=== PATIENT | female | born 1965 | race Caucasian/White ===

== ENCOUNTER → 2016-02-23 | Outpatient (CLI) | payer OTHER ==
[2016-02-23 20:10] LABS: BLOOD UREA NITROGEN 9 MG/DL (7-18); CREATININE FOR GFR 0.72 MG/DL (0.55-1.02); GLOMERULAR FILTRATION RATE > 60.0 (>51)
== END ==
LOC: M WUC 17:13
PROVIDERS: ATTEND Podiatrist
DX: Z51.81 Encounter for therapeutic drug level monitoring (principal); Z79.899 Other long term (current) drug therapy

== ENCOUNTER → 2016-03-08 | Outpatient (CLI) | payer OTHER ==
--- NOTE | 2016-03-09 08:35 | REP ---
MRI study of the right ankle without and with IV contrast: History: Right ankle pain. Question tumor. Attempted aspiration medially but unsuccessful. Comparison radiographs are from December 26, 2015. Technique: Axial, coronal and sagittal imaging planes are utilized. T1, proton density and T2-weighted scans were obtained in the usual fashion with and without fat saturation. MRI findings: There is a large area of low T1, high T2 signal intensity marrow edema occupying most of the anterior calcaneus. Subcortical cyst formation is seen on either side of the subtalar joint posterior facet. There is some minimal marrow edema in the plantar aspect of the talus. There is pes planus. Achilles and plantar calcaneal spurring is noted. There is some thickening and increased signal intensity in the proximal plantar fascia consistent with plantar fasciitis. The Achilles tendon has a normal course, contour and signal intensity. There is a 1.1 cm cystic area deep to the extensor digitorum longus tendon. No other cystic lesion is seen. There is no significant ankle joint or subtalar effusion. No evidence of tarsal coalition is seen. There is some mild valgus deformity at the talonavicular articulation in association with the pes planus. There is swelling and increased signal intensity in a heterogeneous pattern in the tibialis posterior tendon consistent with tendinosis. There appears to be a linear split tear in the distal tendon at its insertion. The flexor hallicis longus and flexor digitorum tendon appear intact. Peroneus longus and brevis tendons have an intact appearance. No ligamentous disruption is seen at the ankle. Ankle mortise is intact. There is no evidence of osteochondral defect lesion involving the tibial plafond or talar dome. Impression: Pes planus with valgus deformity at the talonavicular articulation. Subtalar joint arthropathy and a large area of marrow edema in the anterolateral calcaneus. Plantar fasciitis changes with heel spurring. Small ganglion cyst laterally at the level of the ankle joint deep to the extensor digitorum longus tendon. Tendinosis in the posterior tibial tendon with longitudinal split in the tendon distally. Signed by Levy Ashton MD 03/09/2016 01:17 P
== END ==
LOC: M RAD 16:20
PROVIDERS: ATTEND Podiatrist
DX: M21.41 Flat foot [pes planus] (acquired), right foot (principal); M19.071 Primary osteoarthritis, right ankle and foot; M72.2 Plantar fascial fibromatosis; M77.31 Calcaneal spur, right foot; M67.471 Ganglion, right ankle and foot; M76.821 Posterior tibial tendinitis, right leg
CPT/HCPCS: 73723; A9576

== ENCOUNTER → 2016-05-19 | Outpatient (CLI) | payer OTHER ==
[2016-05-19 09:52] LABS: BASO % 0.8 % (0.0-1.0); EOS # 0.3 K/mm3 (0.0-0.50); EOS % 4.9 % (0.0-3.0); LARGE UNSTAINED CELL # 0.1 K/mm3 (0.0-0.4); LARGE UNSTAINED CELL % 1.8 % (0.0-4.0); LYMPH # 2.4 K/mm3 (1.5-4.5); LYMPH % 38.7 % (24.0-44.0); MEAN CORPUSCULAR HEMOGLOBIN 31.6 pg (27.0-33.0); MEAN CORPUSCULAR HGB CONC 33.8 g/dl (32.0-36.5); MEAN CORPUSCULAR VOLUME 93.5 fl (80.0-96.0); MONO # 0.4 K/mm3 (0.0-0.8); MONO % 5.8 % (0.0-5.0); NEUTROPHILS # 2.9 K/mm3 (1.8-7.7); NEUTROPHILS % 47.9 % (36.0-66.0); PLATELET COUNT, AUTOMATED 271 k/mm3 (150-450)
[2016-05-19 10:24] LABS: ANION GAP 4 MEQ/L (8-16); BLOOD UREA NITROGEN 12 MG/DL (7-18); CALCIUM LEVEL 8.7 MG/DL (8.5-10.1); CARBON DIOXIDE LEVEL 30 MEQ/L (21-32); CHLORIDE LEVEL 106 MEQ/L (98-107); CREATININE FOR GFR 0.74 MG/DL (0.55-1.02); GLOMERULAR FILTRATION RATE > 60.0 (>51); GLUCOSE, FASTING 114 MG/DL (70-105); SODIUM LEVEL 140 MEQ/L (136-145)
--- NOTE | 2016-05-19 22:16 | ECGEPIP ---
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 No PVCs compared with 03/20/2013. Electronically Signed On 05-19-2016 22:16:21 EDT by Roderick Mc
== END ==
LOC: M LAB 09:14
PROVIDERS: ATTEND Podiatrist
DX: Z01.818 Encounter for other preprocedural examination (principal); M76.821 Posterior tibial tendinitis, right leg; M21.41 Flat foot [pes planus] (acquired), right foot; M72.2 Plantar fascial fibromatosis

== ENCOUNTER → 2016-05-25 | Outpatient (CLI) | payer OTHER ==
[2016-05-25 10:30] LABS: BLOOD UREA NITROGEN 10 MG/DL (7-18); CREATININE FOR GFR 0.74 MG/DL (0.55-1.02); GLUCOSE, FASTING 120 MG/DL (70-105)
[2016-05-25 10:31] LABS: ALBUMIN 3.9 GM/DL (3.2-5.2); ALBUMIN/GLOBULIN RATIO 1.15 (1.00-1.93); ALKALINE PHOSPHATASE 127 U/L (45-117); ALT/SGPT 110 U/L (12-78); ANION GAP 9 MEQ/L (8-16); AST/SGOT 75 U/L (15-37); BILIRUBIN,TOTAL 0.4 MG/DL (0.2-1.0); CALCIUM LEVEL 8.6 MG/DL (8.5-10.1); CARBON DIOXIDE LEVEL 27 MEQ/L (21-32); CHLORIDE LEVEL 106 MEQ/L (98-107); CHOLESTEROL LEVEL 215 MG/DL (<200); GLOMERULAR FILTRATION RATE > 60.0 (>51); POTASSIUM SERUM 4.1 MEQ/L (3.5-5.1); SODIUM LEVEL 142 MEQ/L (136-145); TOTAL PROTEIN 7.3 GM/DL (6.4-8.2); TRIGLYCERIDES LEVEL 180 MG/DL (<150)
== END ==
LOC: M WUC 08:12
PROVIDERS: ATTEND Nurse Practitioner Family
DX: I10 Essential (primary) hypertension (principal); R74.8 Abnormal levels of other serum enzymes

== ENCOUNTER → 2016-05-26 | Outpatient (CLI) | payer OTHER | LOC: M WUC 15:55 | PROVIDERS: ATTEND Nurse Practitioner Family | DX: R73.9 Hyperglycemia, unspecified (principal) ==

== ENCOUNTER → 2016-06-04 | Day surgery (SDC) | payer OTHER ==
[~2016-06-04] VITALS: Ht 170.2 cm; Wt 108.9 kg
[~2016-06-04] MED LIST: ALBU17IN INH; BACITRACIN PWD 50,000 UNITS VIAL As Ordered ONE; BUPIVACAINE HCL 0.5% 30 ML VIAL As Ordered ONE; ENOXAPARIN 40 MG/0.4 ML SYRINGE (J1650) SC ONE; GLYCOPYRROLATE INJ 0.2 MG/ML 2 ML VIAL As Ordered ONE; HYDROmorphone HCL 1 MG/ML SYRINGE (J1170) IV PRN; HYDROmorphone HCL 2 MG/ML 1ML VIAL (J1170) As Ordered ONE; KETOROLAC 60 MG/2 ML VIAL (J1885) As Ordered ONE; LIDOCAINE 2% INJ 100 MG/5 ML SYRINGE As Ordered ONE; LIDOCAINE 2% MDV 20 ML VIAL As Ordered ONE; LR 1,000 ML IV SCH; METOCLOPRAMIDE INJ 10MG/2ML VIAL (J2765) As Ordered ONE; MIDAZOLAM INJ 2 MG/2 ML VIAL (J2250) As Ordered ONE; NEOSPORIN GU IRRIG 20 ML VIAL As Ordered ONE; NEOSTIGMINE 1MG/ML 5 ML SYRINGE (J2710) As Ordered ONE; NORCO, ANEXSIA 5/325MG TABLET (HYDROcodone/ACETAMINOPHEN) As Ordered ONE; NORCO, ANEXSIA 5/325MG TABLET (HYDROcodone/ACETAMINOPHEN) PO ONE; ONDANSETRON 4MG/2ML VIAL (J2405) As Ordered ONE; ONDANSETRON 4MG/2ML VIAL (J2405) IV PRN; PERCOCET 5MG/325MG TAB PO PRN; PROPOFOL 200 MG/20 ML VIAL As Ordered ONE; ROCURONIUM BROMIDE 50 MG/5 ML VIAL As Ordered ONE; SEVOFLURANE INHAL SOLN 250 ML BTL As Ordered ONE; VANCOMYCIN HCL 1,000 MG, VIAL MATE ADAPTER 1 EACH in D5W 250 ML IV ONE; dexameTHASONE 4 MG/ML 1ML VIAL (J1100) As Ordered ONE; fentaNYL 100 MCG/2 ML INJECTION (J3010) As Ordered ONE; fentaNYL 100 MCG/2 ML INJECTION (J3010) IV PRN
--- NOTE | 2016-06-04 17:24 | REP ---
RIGHT FOOT, THREE VIEWS: HISTORY: Postoperative osteotomy. A plaster cast is present obscuring detail. The patient is status-post calcaneal osteotomy. Two metal plates and screws are present. There is anatomic alignment through plaster. IMPRESSION: The patient is status-post calcaneal osteotomy. Signed by Gerald Meza MD 06/07/2016 08:00 A
[2016-06-04 20:36] VITALS: BP 128/58
--- NOTE | 2016-06-06 21:24 | RO ---
DATE OF PROCEDURE: 06/04/2016 PREPROCEDURE DIAGNOSES: Posterior tibial tendon dysfunction, right foot. Hallux limitus deformity, right foot. POSTPROCEDURE DIAGNOSES: Posterior tibial tendon dysfunction, right foot. Hallux limitus deformity, right foot. OPERATIVE PROCEDURE: 1. Repair of linear tear posterior tibial tendon, right foot. 2. Flexor digitorum longus tendon transfer to the navicular. 3. Medial calcaneal slide osteotomy with plate and screw fixation. 4. Cheilectomy first metatarsophalangeal joint, right foot. SURGEON: Dr. Glen Bledsoe DPM [employer] MANAGER: None. ANESTHESIA: General. IRRIGATION: Dilute bacitracin, neomycin and polymyxin B solution. IMPLANTS UTILIZED: Arthrex Bio-Tenodesis 5.5 x 15 mm biocomposite, right medial calcaneal displacement plate 8 mm with non-locking screws 3.5 x 35 times two and a 3.5 x 30 mm times two, right foot. DESCRIPTION OF PROCEDURE: On 06/04/2016, this 50-year-old white female was taken from her hospital room to the operating room and placed on the operating table in supine position. Following the induction of IV sedation and local and regional anesthesia, the right lower extremity was prepped and draped in the usual aseptic manner. Right lower extremity was elevated and the patient was placed in the supine position and a thigh tourniquet was rapidly inflated and the following procedure was performed: CHEILECTOMY FIRST METATARSOPHALANGEAL JOINT, RIGHT FOOT: Attention was directed to the patient's right foot where there was noted be a hallux limitus deformity. At this time, a 6 cm incision was placed over the first metatarsophalangeal joint. The incision was deepened through the subcutaneous tissues and all coursing venous tributaries were identified, underscored, clamped, cut, ligated and electrocoagulated as necessary. Linear capsulotomy was performed in the same plane as the original skin incision and the capsule and periosteal structures were then dissected free in one continuous layer dorsally, medially and laterally, thus creating a capsule and periosteal type envelope. This lead into view spurring over the first metatarsophalangeal joint, as well as two loose bodies, as well as a central defect of articular cartilage. There was small area measuring approximately 4 mm x 5 mm with loss of articular surface and this was debrided away. Spurring on the dorsal surface of the fist metatarsal was then osteotomized encompassing the dorsal 25%. The proximal phalanx had 20% of spurring and cartilage loss. This was then osteotomized from distal to proximal and extirpated from the wound. Medial eminence was osteotomized from distal to proximal through and through exiting medial to the sesamoidal groove. Utilizing a metatarsal elevator, the plantar sesamoids were released. The wound was flushed with copious amounts of dilute bacitracin, neomycin and polymyxin B solution. Attention was directed towards closure where the capsular structures were coapted and maintained using #2-0 Monocryl in a simple interrupted type fashion. The subcutaneous tissues were coapted and maintained using #4-0 Monocryl in simple interrupted type fashion. The skin incision was coapted and maintained using #4-0 Prolene in simple interrupted and horizontal mattress type fashion. Attention was then directed to the medial surface of the foot where the following procedure was performed: REPAIR OF LINEAR TEAR POSTERIOR TIBIAL TENDON, RIGHT FOOT: Attention was directed to the patient's right foot where there was noted to be swelling over the medial tendons. At this time, an S-shaped incision was placed extending approximately 2 cm superior to the medial malleolus and ending approximately 1 cm distal to the navicular. The incision was deepened through the subcutaneous tissues. All coursing venous tributaries were clamped, cut, ligated and electrocoagulated as necessary. The posterior tibial tendon sheath was then opened. There was noted to be a hypertrophy of synovium. This was then debrided away with sharp dissection and electrocoagulation. The posterior tibial tendon was flipped and there was noted to be a 6 cm tear of the posterior tibial tendon. This was sharply debrided and all diseased tendon was removed. Utilizing #4-0 FiberWire, the defect was repaired with a running buried knot FiberWire stitch. The wound was then flushed with copious amounts of dilute Bacitracin, neomycin and Polymyxin B solution. The following procedure was performed: FLEXOR DIGITORUM LONGUS TENDON TRANSFER TO THE NAVICULAR: The flexor digitorum longus tendon sheath was then opened and dissection was carried down past the abduction hallices toward the master knot of Alex. The large venous complex in this area was retracted in a plantar direction. All bleeders in that area that were identified were clamped and ligated. Gelfoam was also placed into the wound. Plantar flexion was noted when the tendon was pulled of the lesser digits. The flexor digitorum longus tendon was then transected. Utilizing a #2 FiberWire, a whipstitch was then placed in the usual fashion. The tendon was then placed under anatomic and physiologic tension and it was noted that approximately 20 mm of the tendon distally should be placed into the navicular for the correct pressure. Therefore, utilizing a cannulated wire with C-Arm imagery, correct position was noted to the navicular and a 5.5 drill bit was buried 20 mm into the navicular creating a socket for acceptance of the flexor digitorum longus tendon. Utilizing the standard technique with a 5.5 x 15 mm screw, the tendon was placed into the socket and the 5.5 x 15 Bio-Tenodesis screw was inserted. Excellent fixation was noted. The FiberWire was then knotted over the screw and transected. The wound was flushed with copious amounts of dilute Bacitracin, Neomycin, and Polymyxin B solution. The flexor tendon sheath was then repaired with #4-0 Monocryl suture. Subcutaneous tissues were coapted and maintained utilizing #4-0 Monocryl in a simple interrupted type fashion. Skin incision was coapted and maintained using #4-0 Prolene in a simple, interrupted horizontal mattress type fashion. Temporary bandage was then placed on the wound and the thigh tourniquet was deflated after 108 minutes. Greater than 20 minutes was then utilized for proper revascularization of the foot. The thigh tourniquet was then rapidly inflated to 300 mmHg. The patient was placed in the left lateral decubitus position and the following procedure was performed: MEDIAL CALCANEAL SLIDE OSTEOTOMY WITH PLATE AND SCREW FIXATION: Attention was directed to the lateral surface of the foot where posterior to the peroneal tendon an incision was made across the calcaneus. This measured approximately 5 cm. Dissection was then carried down to the lateral wall of the calcaneus. All bleeders, as encountered were electrocoagulated. Using a power saw, an osteotomy was then performed through the calcaneus away from the subtalar joint and exiting distal to the tuberosity of the calcaneus. Utilizing an 8 mm DPS plate, the calcaneus was slid in a medial direction 8 mm and fixated with 3.5 x 35 mm non-locking screws. Non-locking screws were then utilized across the plate, 3.5 x 35 mm times two and a 3.5 x 30 mm times two. Excellent fixation was noted of the osteotomy and good compression was noted at the osteotomy site. The wound was flushed with copious amounts of dilute bacitracin, neomycin, and polymyxin B solution. The periosteum was then repaired with #3-0 Vicryl. Subcutaneous tissue coapted and maintained using #4-0 Monocryl in a simple, interrupted type fashion. Skin incision was coapted and maintained using #4-0 Prolene in a simple interrupted horizontal mattress type fashion. The foot was then dressed with 4x4s, 4x4 splints, Adaptic and a Fan compression dressing. The thigh tourniquet was rapidly deflated and instantaneous capillary filling time was noted in digits 1-5 of the patient's right foot. The patient apparently having tolerated the surgical procedure well was taken from the OR to the recovery room with vital signs stable, patient afebrile, for further monitoring by the anesthesia department. All surgical specimens removed during the operative procedure were sent to pathology for gross and microscopic examination. Postoperative instructions will be given upon discharge.
== END | disposition home or self-care (01) ==
LOC: M SDC 08:47
PROVIDERS: ATTEND Podiatrist
DX: M76.821 Posterior tibial tendinitis, right leg (principal); M67.471 Ganglion, right ankle and foot; M72.2 Plantar fascial fibromatosis; M20.21 Hallux rigidus, right foot; G47.30 Sleep apnea, unspecified; Z88.0 Allergy status to penicillin; Z88.2 Allergy status to sulfonamides
CPT/HCPCS: 27691; 28200; 28289; 28300; 73630; 88300; C1776; J1100; J1170; J1650; J1885; J2250; J2405; J2710; J2765; J3010; J3370

== ENCOUNTER → 2016-09-22 | Outpatient (CLI) | payer OTHER ==
[~2016-09-22] MED LIST changes: -BACITRACIN PWD 50,000 UNITS VIAL As Ordered ONE; -BUPIVACAINE HCL 0.5% 30 ML VIAL As Ordered ONE; -ENOXAPARIN 40 MG/0.4 ML SYRINGE (J1650) SC ONE; -GLYCOPYRROLATE INJ 0.2 MG/ML 2 ML VIAL As Ordered ONE; -HYDROmorphone HCL 1 MG/ML SYRINGE (J1170) IV PRN; -HYDROmorphone HCL 2 MG/ML 1ML VIAL (J1170) As Ordered ONE; -KETOROLAC 60 MG/2 ML VIAL (J1885) As Ordered ONE; -LIDOCAINE 2% INJ 100 MG/5 ML SYRINGE As Ordered ONE; -LIDOCAINE 2% MDV 20 ML VIAL As Ordered ONE; -LR 1,000 ML IV SCH; -METOCLOPRAMIDE INJ 10MG/2ML VIAL (J2765) As Ordered ONE; -MIDAZOLAM INJ 2 MG/2 ML VIAL (J2250) As Ordered ONE; -NEOSPORIN GU IRRIG 20 ML VIAL As Ordered ONE; -NEOSTIGMINE 1MG/ML 5 ML SYRINGE (J2710) As Ordered ONE; -NORCO, ANEXSIA 5/325MG TABLET (HYDROcodone/ACETAMINOPHEN) As Ordered ONE; -NORCO, ANEXSIA 5/325MG TABLET (HYDROcodone/ACETAMINOPHEN) PO ONE; -ONDANSETRON 4MG/2ML VIAL (J2405) As Ordered ONE; -ONDANSETRON 4MG/2ML VIAL (J2405) IV PRN; -PERCOCET 5MG/325MG TAB PO PRN; -PROPOFOL 200 MG/20 ML VIAL As Ordered ONE; -ROCURONIUM BROMIDE 50 MG/5 ML VIAL As Ordered ONE; -SEVOFLURANE INHAL SOLN 250 ML BTL As Ordered ONE; -VANCOMYCIN HCL 1,000 MG, VIAL MATE ADAPTER 1 EACH in D5W 250 ML IV ONE; -dexameTHASONE 4 MG/ML 1ML VIAL (J1100) As Ordered ONE; -fentaNYL 100 MCG/2 ML INJECTION (J3010) As Ordered ONE; -fentaNYL 100 MCG/2 ML INJECTION (J3010) IV PRN
[2016-09-22 09:24] LABS: MEAN CORPUSCULAR HEMOGLOBIN 31.9 pg (27.0-33.0); MEAN CORPUSCULAR HGB CONC 34.4 g/dl (32.0-36.5); MEAN CORPUSCULAR VOLUME 92.7 fl (80.0-96.0); RED CELL DISTRIBUTION WIDTH 12.1 % (11.5-14.5); WHITE BLOOD COUNT 5.6 K/mm3 (4.0-10.0)
[2016-09-22 10:09] LABS: ALBUMIN 4.1 GM/DL (3.2-5.2); ALBUMIN/GLOBULIN RATIO 1.14 (1.00-1.93); ALKALINE PHOSPHATASE 142 U/L (45-117); ALT/SGPT 127 U/L (12-78); ANION GAP 11 MEQ/L (8-16); AST/SGOT 120 U/L (15-37); BILIRUBIN,TOTAL 0.6 MG/DL (0.2-1.0); BLOOD UREA NITROGEN 8 MG/DL (7-18); CALCIUM LEVEL 8.5 MG/DL (8.5-10.1); CARBON DIOXIDE LEVEL 25 MEQ/L (21-32); CHLORIDE LEVEL 107 MEQ/L (98-107); CHOLESTEROL LEVEL 241 MG/DL (<200); CREATININE FOR GFR 0.75 MG/DL (0.55-1.02); GLOMERULAR FILTRATION RATE > 60.0 (>51); GLUCOSE, FASTING 117 MG/DL (70-105); SODIUM LEVEL 143 MEQ/L (136-145); TOTAL PROTEIN 7.7 GM/DL (6.4-8.2); TRIGLYCERIDES LEVEL 187 MG/DL (<150)
== END ==
LOC: M WUC 08:03
PROVIDERS: ATTEND Nurse Practitioner Family
DX: E78.5 Hyperlipidemia, unspecified (principal); E11.9 Type 2 diabetes mellitus without complications; R94.5 Abnormal results of liver function studies; Z79.899 Other long term (current) drug therapy

== ENCOUNTER → 2017-03-18 | Outpatient (CLI) | payer OTHER ==
[2017-03-18 20:21] LABS: CREATININE FOR GFR 0.73 MG/DL (0.55-1.30); GLOMERULAR FILTRATION RATE > 60.0 (>51)
[2017-03-18 20:21] LABS: BLOOD UREA NITROGEN 9 MG/DL (7-18)
== END ==
LOC: M WUC 16:05
DX: E11.9 Type 2 diabetes mellitus without complications (principal)
CPT/HCPCS: 82565

== ENCOUNTER → 2017-06-09 | Outpatient (REF) | payer OTHER | LOC: M LAB REF 11:53 | DX: N39.0 Urinary tract infection, site not specified (principal) ==

== ENCOUNTER 2017-09-12 08:03 | Emergency (ER) | payer OTHER ==
[2017-09-12] MEDS: KETOROLAC 30 MG/ML VIAL (J1885) IV (09:28)
[2017-09-12] MEDS: ONDANSETRON 4MG/2ML VIAL (J2405) IV (09:29)
[2017-09-12 09:34] LABS: CALCIUM OXALATE CRYSTALS RFX MODERATE; KETONE, URINE AUTO RFX TRACE mg/dL (NEGATIVE); MUCUS, URINE RFX SMALL (NEGATIVE); NITRITE, URINE AUTO RFX NEGATIVE (NEGATIVE); RBC, URINE AUTO RFX TNTC /HPF (0-3); SPECIFIC GRAVITY UR AUTO RFX 1.021 (1.002-1.035); SQUAM EPITHELIAL CELL UR AURFX 3 /HPF (0-6); YEAST LIKE CELL URINE AUTO RFX SMALL
[2017-09-12 09:35] LABS: LEUKOCYTE ESTERASE UR AUTO RFX 1+ (NEGATIVE); WBC, URINE AUTO RFX 30 /HPF (0-3)
== END 2017-09-12 12:15 | disposition home or self-care (01) ==
LOC: M ED 08:03
DX: N13.1 Hydronephrosis with ureteral stricture, not elsewhere classified (principal); K86.2 Cyst of pancreas; N28.1 Cyst of kidney, acquired; R11.10 Vomiting, unspecified; E11.9 Type 2 diabetes mellitus without complications; E78.5 Hyperlipidemia, unspecified; J30.89 Other allergic rhinitis; J30.81 Allergic rhinitis due to animal (cat) (dog) hair and dander; J30.1 Allergic rhinitis due to pollen; Z88.0 Allergy status to penicillin; Z88.2 Allergy status to sulfonamides; Z79.899 Other long term (current) drug therapy; Z79.84 Long term (current) use of oral hypoglycemic drugs
CPT/HCPCS: J2405

== ENCOUNTER → 2017-09-15 | Outpatient (REF) | payer OTHER ==
[2017-09-15 13:07] LABS: AMORPHOUS SEDIMENT LARGE (NEGATIVE); APPEARANCE, URINE TURBID (CLEAR); BACTERIA, URINE AUTO NEGATIVE (NEGATIVE); BILIRUBIN, URINE AUTO NEGATIVE (NEGATIVE); BLOOD, URINE BLOOD 3+ (NEGATIVE); COLOR, URINE RED (YELLOW); GLUCOSE, URINE (UA) AUTO 1+ mg/dL (NEGATIVE); KETONE, URINE AUTO NEGATIVE (NEGATIVE); LEUKOCYTE ESTERASE, URINE AUTO TRACE (NEGATIVE); MUCUS, URINE SMALL (NEGATIVE); NITRITE, URINE AUTO NEGATIVE (NEGATIVE); PROTEIN, URINE AUTO 2+ mg/dL (NEGATIVE); RBC, URINE AUTO TNTC /HPF (0-3); SPECIFIC GRAVITY URINE AUTO 1.025 (1.002-1.035); SQUAMOUS EPITHELIAL CELL UR AU 0 /HPF (0-6); WBC, URINE AUTO 4 /HPF (0-3)
== END ==
LOC: M SMT 12:39
DX: N20.0 Calculus of kidney (principal)
CPT/HCPCS: 81001

== ENCOUNTER 2017-10-24 21:41 | Emergency (ER) | payer OTHER ==
[2017-10-24] MEDS: MORPHINE 4 MG/ML 1ML VIAL/SYRINGE (J2270) IV ×2 (22:30→23:31)
[2017-10-24] MEDS: KETOROLAC 30 MG/ML VIAL (J1885) IV (22:30)
[2017-10-24] MEDS: ONDANSETRON 4MG/2ML VIAL (J2405) IV (22:30)
[2017-10-24 22:43] LABS: BASO # 0.1 10^3/uL (0.0-0.2); BASO % 0.7 % (0.0-1.0); EOS # 0.3 10^3/uL (0.0-0.50); EOS % 3.9 % (0.0-3.0); HEMATOCRIT 39.9 % (36.0-47.0); HEMOGLOBIN 13.6 g/dl (12.0-15.5); IMMATURE GRANULOCYTE % 0.2 % (0-3.0); LYMPH # 3.9 10^3/uL (1.5-4.5); LYMPH % 45.6 % (24.0-44.0); MEAN CORPUSCULAR HEMOGLOBIN 31.7 pg (27.0-33.0); MEAN CORPUSCULAR HGB CONC 34.1 g/dl (32.0-36.5); MONO # 0.7 10^3/uL (0.0-0.8); MONO % 7.9 % (0.0-5.0); NEUTROPHILS # 3.6 10^3/uL (1.8-7.7); NEUTROPHILS % 41.7 % (36.0-66.0); PLATELET COUNT, AUTOMATED 247 10^3/uL (150-450); RED BLOOD COUNT 4.29 10^6/uL (4.00-5.40); RED CELL DISTRIBUTION WIDTH 12.3 % (11.5-14.5); WHITE BLOOD COUNT 8.6 10^3/uL (4.0-10.0)
[2017-10-25 00:48] LABS: ANION GAP 12 MEQ/L (8-16); BLOOD UREA NITROGEN 7 MG/DL (7-18); CALCIUM LEVEL 9.8 MG/DL (8.5-10.1); CARBON DIOXIDE LEVEL 24 MEQ/L (21-32); CHLORIDE LEVEL 105 MEQ/L (98-107); CK-MB VALUE MASS < 1.0 NG/ML (<3.6); CPK CREATINE PHOSPHOKINASE 244 U/L (26-192); CREATININE FOR GFR 0.89 MG/DL (0.55-1.30); GLOMERULAR FILTRATION RATE > 60.0 (>51); GLUCOSE, FASTING 210 MG/DL (70-100); MB/CK RELATIVE INDEX 0.41 (< OR =4); POTASSIUM SERUM 4.1 MEQ/L (3.5-5.1); SODIUM LEVEL 141 MEQ/L (136-145); TROPONIN I < 0.02 NG/ML (< 0.10)
[2017-10-25 01:15] LABS: CALCIUM OXALATE CRYSTALS RFX SMALL; KETONE, URINE AUTO RFX NEGATIVE (NEGATIVE); LEUKOCYTE ESTERASE UR AUTO RFX TRACE (NEGATIVE); MUCUS, URINE RFX SMALL (NEGATIVE); NITRITE, URINE AUTO RFX NEGATIVE (NEGATIVE); RBC, URINE AUTO RFX TNTC /HPF (0-3); SPECIFIC GRAVITY UR AUTO RFX 1.009 (1.002-1.035); SQUAM EPITHELIAL CELL UR AURFX 3 /HPF (0-6); WBC, URINE AUTO RFX 15 /HPF (0-3)
[2017-10-25] MEDS: TAMSULOSIN 0.4 MG CAP PO (02:03)
[2017-10-25] MEDS: OXYCODONE/APAP 5MG/325MG(BULK FOR ED) 1 TABLET PO (02:04)
== END 2017-10-25 02:11 | disposition home or self-care (01) ==
LOC: M ED 10-25 02:11
DX: N20.1 Calculus of ureter (principal); Z87.442 Personal history of urinary calculi; Z79.899 Other long term (current) drug therapy; Z79.84 Long term (current) use of oral hypoglycemic drugs
CPT/HCPCS: J2270

== ENCOUNTER → 2017-10-24 | Outpatient (CLI) | payer OTHER | LOC: M RAD 17:03 | DX: N20.0 Calculus of kidney (principal) ==

== ENCOUNTER 2017-10-28 21:31 | Emergency (ER) | payer OTHER ==
[2017-10-28 22:02] LABS: KETONE, URINE AUTO RFX NEGATIVE (NEGATIVE); LEUKOCYTE ESTERASE UR AUTO RFX NEGATIVE (NEGATIVE); MUCUS, URINE RFX SMALL (NEGATIVE); NITRITE, URINE AUTO RFX NEGATIVE (NEGATIVE); RBC, URINE AUTO RFX TNTC /HPF (0-3); SPECIFIC GRAVITY UR AUTO RFX 1.019 (1.002-1.035); SQUAM EPITHELIAL CELL UR AURFX 0 /HPF (0-6); WBC, URINE AUTO RFX 5 /HPF (0-3)
[2017-10-28] MEDS: NS 1,000 ML IV (22:30)
[2017-10-28] MEDS: MORPHINE 4 MG/ML 1ML VIAL/SYRINGE (J2270) IV (22:45)
[2017-10-28] MEDS ORDERED: TAMSULOSIN 0.4 MG CAP PO (22:45)
[2017-10-28] MEDS: TAMSULOSIN 0.4 MG CAP PO (22:45)
[2017-10-28 23:13] LABS: BASO # 0.1 10^3/uL (0.0-0.2); BASO % 0.6 % (0.0-1.0); EOS # 0.4 10^3/uL (0.0-0.50); EOS % 4.3 % (0.0-3.0); HEMATOCRIT 36.5 % (36.0-47.0); HEMOGLOBIN 12.2 g/dl (12.0-15.5); IMMATURE GRANULOCYTE % 0.2 % (0-3.0); LYMPH # 2.7 10^3/uL (1.5-4.5); LYMPH % 29.6 % (24.0-44.0); MEAN CORPUSCULAR HEMOGLOBIN 31.6 pg (27.0-33.0); MEAN CORPUSCULAR HGB CONC 33.4 g/dl (32.0-36.5); MEAN CORPUSCULAR VOLUME 94.6 fl (80.0-96.0); MONO # 0.8 10^3/uL (0.0-0.8); MONO % 8.7 % (0.0-5.0); NEUTROPHILS # 5.1 10^3/uL (1.8-7.7); NEUTROPHILS % 56.6 % (36.0-66.0); PLATELET COUNT, AUTOMATED 230 10^3/uL (150-450); RED BLOOD COUNT 3.86 10^6/uL (4.00-5.40); RED CELL DISTRIBUTION WIDTH 12.2 % (11.5-14.5)
[2017-10-28 23:45] LABS: ANION GAP 7 MEQ/L (8-16); BLOOD UREA NITROGEN 10 MG/DL (7-18); CALCIUM LEVEL 9.1 MG/DL (8.5-10.1); CARBON DIOXIDE LEVEL 28 MEQ/L (21-32); CHLORIDE LEVEL 105 MEQ/L (98-107); CREATININE FOR GFR 1.01 MG/DL (0.55-1.30); GLOMERULAR FILTRATION RATE > 60.0 (>51); GLUCOSE, FASTING 266 MG/DL (70-100); POTASSIUM SERUM 3.7 MEQ/L (3.5-5.1); SODIUM LEVEL 140 MEQ/L (136-145)
[2017-10-29] MEDS: NS 1,000 ML IV (01:00)
[2017-10-29] MEDS: KETOROLAC 30 MG/ML VIAL (J1885) IV (01:00)
== END 2017-10-29 03:54 | disposition home or self-care (01) ==
LOC: M ED 10-29 03:54
DX: N20.1 Calculus of ureter (principal); Z87.442 Personal history of urinary calculi; R11.0 Nausea; E11.9 Type 2 diabetes mellitus without complications; E78.5 Hyperlipidemia, unspecified; E03.9 Hypothyroidism, unspecified; Z88.0 Allergy status to penicillin; Z88.2 Allergy status to sulfonamides; J30.81 Allergic rhinitis due to animal (cat) (dog) hair and dander; J30.89 Other allergic rhinitis; Z79.899 Other long term (current) drug therapy; Z79.84 Long term (current) use of oral hypoglycemic drugs
CPT/HCPCS: J2270

== ENCOUNTER → 2017-12-13 | Outpatient (CLI) | payer OTHER | LOC: M RAD 17:10 | DX: K42.9 Umbilical hernia without obstruction or gangrene (principal); K57.90 Diverticulosis of intestine, part unspecified, without perforation or abscess without bleeding | CPT/HCPCS: 74176 ==

== ENCOUNTER → 2018-08-11 | Outpatient (CLI) | payer OTHER ==
[~2018-08-11] MED LIST changes: +CRES10TA PO; +FLOM0.4C39 PO; +HYDR-3715 PO; +LEVO25TA5 PO; +MELO15TA28 PO; +METF500T13 PO; +PERC5TAB12 PO; +VENTAER INH; +ZOFR4TAB14 PO
[2018-08-11 15:57] LABS: BASO # 0.1 10^3/uL (0.0-0.2); BASO % 0.7 % (0.0-1.0); EOS # 0.2 10^3/uL (0.0-0.50); EOS % 3.5 % (0.0-3.0); HEMATOCRIT 43.1 % (36.0-47.0); HEMOGLOBIN 14.5 g/dl (12.0-15.5); LYMPH # 3.3 10^3/uL (1.5-4.5); LYMPH % 47.7 % (24.0-44.0); MEAN CORPUSCULAR HEMOGLOBIN 31.9 pg (27.0-33.0); MEAN CORPUSCULAR HGB CONC 33.6 g/dl (32.0-36.5); MEAN CORPUSCULAR VOLUME 94.9 fl (80.0-96.0); MONO # 0.4 10^3/uL (0.0-0.8); NEUTROPHILS # 2.9 10^3/uL (1.8-7.7); PLATELET COUNT, AUTOMATED 165 10^3/uL (150-450); RED BLOOD COUNT 4.54 10^6/uL (4.00-5.40); WHITE BLOOD COUNT 6.9 10^3/uL (4.0-10.0)
[2018-08-11 16:00] LABS: ALBUMIN 4.1 GM/DL (3.2-5.2); ALT/SGPT 92 U/L (12-78); BILIRUBIN,TOTAL 0.7 MG/DL (0.2-1.0); BLOOD UREA NITROGEN 6 MG/DL (7-18); CALCIUM LEVEL 8.5 MG/DL (8.5-10.1); CARBON DIOXIDE LEVEL 28 MEQ/L (21-32); CHLORIDE LEVEL 104 MEQ/L (98-107); CHOLESTEROL LEVEL 219 MG/DL (<200); CHOLESTEROL RISK RATIO 6.083 (<5); CREATININE FOR GFR 0.78 MG/DL (0.55-1.30); FREE T4 1.17 NG/DL (0.76-1.46); GLOMERULAR FILTRATION RATE > 60.0 (>51); GLUCOSE, FASTING 299 MG/DL (70-100); HDL CHOLESTEROL 36 MG/DL (>40); LDL CHOLESTEROL 140 MG/DL (<100); NON-HDL-C 183 MG/DL; POTASSIUM SERUM 4.1 MEQ/L (3.5-5.1); SODIUM LEVEL 139 MEQ/L (136-145); TOTAL PROTEIN 7.7 GM/DL (6.4-8.2); TRIGLYCERIDES LEVEL 217 MG/DL (<150)
== END ==
LOC: M WUC 08:49
PROVIDERS: ATTEND Physician Assistant Medical
DX: R53.83 Other fatigue (principal); I10 Essential (primary) hypertension; E78.2 Mixed hyperlipidemia; E03.9 Hypothyroidism, unspecified; E11.9 Type 2 diabetes mellitus without complications

== ENCOUNTER → 2019-03-26 | Outpatient (CLI) | payer OTHER ==
[2019-03-26 20:37] LABS: ALBUMIN 4.6 GM/DL (3.2-5.2); ALT/SGPT 88 U/L (12-78); BILIRUBIN,TOTAL 0.6 MG/DL (0.2-1.0); BLOOD UREA NITROGEN 9 MG/DL (7-18); CALCIUM LEVEL 9.6 MG/DL (8.5-10.1); CARBON DIOXIDE LEVEL 32 MEQ/L (21-32); CHLORIDE LEVEL 101 MEQ/L (98-107); CREATININE FOR GFR 0.84 MG/DL (0.55-1.30); GLOMERULAR FILTRATION RATE > 60.0 (>51); GLUCOSE, FASTING 157 MG/DL (70-100); POTASSIUM SERUM 4.1 MEQ/L (3.5-5.1); SODIUM LEVEL 139 MEQ/L (136-145); TOTAL PROTEIN 8.3 GM/DL (6.4-8.2)
[2019-03-26 20:38] LABS: HEMATOCRIT 45.6 % (36.0-47.0); HEMOGLOBIN 15.2 g/dl (12.0-15.5); MEAN CORPUSCULAR HEMOGLOBIN 31.2 pg (27.0-33.0); MEAN CORPUSCULAR HGB CONC 33.3 g/dl (32.0-36.5); MEAN CORPUSCULAR VOLUME 93.6 fl (80.0-96.0); PLATELET COUNT, AUTOMATED 226 10^3/uL (150-450); RED BLOOD COUNT 4.87 10^6/uL (4.00-5.40)
[2019-03-26 20:40] LABS: WHITE BLOOD COUNT 11.3 10^3/uL (4.0-10.0)
[2019-03-26 20:58] LABS: ATYPICAL LYMPH 2 % (0-5); EOSINOPHILS 3 % (0-3); LYMPHOCYTES 52 % (16-44); MONOCYTES 4 % (0-5); NEUTROPHILS 39 % (28-66)
[2019-03-26 20:59] LABS: PLATELET ESTIMATE NORMAL (NORMAL)
== END ==
LOC: M WUC 17:56
PROVIDERS: ATTEND Physician Assistant
DX: R51 Headache (principal)

== ENCOUNTER → 2019-09-27 | Outpatient (CLI) | payer OTHER ==
--- NOTE | 2019-10-16 07:04 | REPMRS ---
Patient History The patient states she has not had a clinical breast exam in over a year. Patient is postmenopausal. Family history of colorectal cancer at age 50 or over in paternal uncle, unknown cancer at age 50 or over in maternal uncle, breast cancer under age 50 in maternal cousin, breast cancer at age 50 or over in maternal cousin, breast cancer at age 50 or over in maternal cousin, unknown cancer at age 50 or over in maternal grandfather, breast cancer at age 38 in paternal cousin, endometrial cancer at age 50 or over in paternal aunt, colorectal cancer at age 80 in father. Took hormonal contraceptives for 3 years. Digital Woman Screen Mammo: September 27, 2019 - Exam #: [id number] Bilateral CC and MLO view(s) were taken. Technologist: Santosh Statonologist Prior study comparison: October 04, 2014, digital bilateral screening mammo, performed at [facility]. October 02, 2013, bilateral bilat screen digital mammo, performed at [facility] ([facility]). October 01, 2010, bilateral screening mammogram, performed at [facility] ([facility]). FINDINGS: There are scattered fibroglandular densities. The Volpara volumetric breast density category is:B. There has been no change in the appearance of the mammogram from the prior studies. There is a mild amount of scattered fibroglandular density which is fairly symmetric. There is no interval development of dominant mass, architectural distortion, or grouped microcalcification suggestive of malignancy. 3-D tomosynthesis shows no additional findings. Assessment: BI-RADS/ACR category 1 mammogram. Negative Mammogram. Recommendation Routine screening mammogram of both breasts in 1 year (for women over age 40). This patient's Lifetime Breast Cancer Risk is estimated at 9.9 %. This mammogram was interpreted with the aid of an FDA-approved computer-aided dectection system. Electronically Signed By: Sid Ashton MD 10/16/19 [id number]
== END ==
LOC: M WHC 07:28
PROVIDERS: ATTEND Internal Medicine Cardiovascular Disease
DX: Z12.31 Encounter for screening mammogram for malignant neoplasm of breast (principal); Z78.0 Asymptomatic menopausal state; Z80.0 Family history of malignant neoplasm of digestive organs

== ENCOUNTER → 2020-02-12 | Outpatient (CLI) | payer OTHER ==
[2020-02-12 08:16] LABS: ALBUMIN 3.6 GM/DL (3.2-5.2); BILIRUBIN,DIRECT 0.1 MG/DL (0.0-0.2); BILIRUBIN,TOTAL 0.5 MG/DL (0.2-1.0); TOTAL PROTEIN 7.1 GM/DL (6.4-8.2)
== END ==
LOC: M LAB 07:06
DX: R93.5 Abnormal findings on diagnostic imaging of other abdominal regions, including retroperitoneum (principal); Z80.0 Family history of malignant neoplasm of digestive organs; Z12.11 Encounter for screening for malignant neoplasm of colon

== ENCOUNTER → 2020-03-13 | Outpatient (CLI) | payer OTHER ==
--- NOTE | 2020-03-13 15:05 | REP ---
INDICATION: ELEVATED LFT'S CIRRHOSIS TECHNIQUE: Real time B-mode tapia scale and color ultrasound examination using curved array transducer. FINDINGS: Liver measures 21 cm in craniocaudal length and demonstrates coarsened hyperechoic echotexture without focal hepatic lesion. Spleen measures 11.7 x 12.1 x 5.1 cm (SI: 758) without focal splenic lesion identified. The pancreas is incompletely evaluated but visualized portions appear normal. Patient is noted to be status post cholecystectomy. No biliary ductal dilatation is appreciated and the common bile duct measures 4.9 mm diameter. The bilateral kidneys are normal in reniform shape and demonstrate increased central sinus fat without hydronephrosis. Right kidney measures 12.2 x 5.1 x 4.5 cm with a 2.7 x 1.5 x 1.8 cm partially rim calcified presumed complex cyst and 5 x 4 x 6 mm midpole cyst. Left kidney measures 12.8 x 5.0 x 5.0 cm and includes 8 x 9 x 9 mm upper pole cyst. Abdominal aorta is normal caliber and measures 1.8 cm maximal diameter. No obvious ascites. IMPRESSION: Findings consistent with hepatocellular disease/cirrhosis. Splenomegaly without focal lesion. Chronic medical renal disease along with simple and presumed complex cysts. Consider pre and postcontrast CT of the abdomen to confirm benignity. <Electronically signed by Terry Dawson > 03/13/20 [id number]
== END ==
LOC: M RAD 06:53
PROVIDERS: ATTEND Specialist
DX: R93.5 Abnormal findings on diagnostic imaging of other abdominal regions, including retroperitoneum (principal); N18.9 Chronic kidney disease, unspecified; Z12.11 Encounter for screening for malignant neoplasm of colon; Z80.0 Family history of malignant neoplasm of digestive organs; Z90.49 Acquired absence of other specified parts of digestive tract

== ENCOUNTER → 2020-03-18 | Outpatient (CLI) | payer OTHER ==
[2020-03-18 09:20] LABS: % LABILE ALKALINE PHOSPHATASE 53.96 %
== END ==
LOC: M LAB 07:04
PROVIDERS: ATTEND Nurse Practitioner Family
DX: R74.8 Abnormal levels of other serum enzymes (principal)

== ENCOUNTER → 2020-05-14 | Outpatient (CLI) | payer OTHER | LOC: M LABSMTC 10:59 | PROVIDERS: ATTEND Nurse Practitioner Family | DX: Z20.822 Contact with and (suspected) exposure to COVID-19 (principal) ==

== ENCOUNTER → 2020-05-31 | Outpatient (CLI) | payer OTHER ==
[2020-05-31 09:33] LABS: BASO # 0.1 10^3/uL (0.0-0.2); BASO % 0.8 % (0.0-1.0); EOS # 0.2 10^3/uL (0.0-0.5); EOS % 3.6 % (0.0-3.0); HEMATOCRIT 42.4 % (36.0-47.0); HEMOGLOBIN 13.9 g/dl (12.0-15.5); LYMPH % 44.8 % (24.0-44.0); MEAN CORPUSCULAR HEMOGLOBIN 30.6 pg (27.0-33.0); MEAN CORPUSCULAR HGB CONC 32.8 g/dl (32.0-36.5); MEAN CORPUSCULAR VOLUME 93.4 fl (80.0-96.0); MONO # 0.5 10^3/uL (0.0-0.8); MONO % 7.8 % (2.0-8.0); NEUTROPHILS # 2.9 10^3/uL (1.5-8.5); NEUTROPHILS % 42.8 % (36.0-66.0); PLATELET COUNT, AUTOMATED 167 10^3/uL (150-450); RED BLOOD COUNT 4.54 10^6/uL (4.00-5.40); WHITE BLOOD COUNT 6.7 10^3/uL (4.0-10.0)
[2020-05-31 10:07] LABS: HEMOGLOBIN A1c 6.7 %
[2020-05-31 10:08] LABS: ALBUMIN 3.8 GM/DL (3.2-5.2); ALT/SGPT 56 U/L (12-78); BILIRUBIN,TOTAL 0.5 MG/DL (0.2-1.0); BLOOD UREA NITROGEN 9 MG/DL (7-18); CALCIUM LEVEL 8.6 MG/DL (8.5-10.1); CARBON DIOXIDE LEVEL 31 MEQ/L (21-32); CHLORIDE LEVEL 106 MEQ/L (98-107); CHOLESTEROL LEVEL 240 MG/DL (<200); CHOLESTEROL RISK RATIO 4.897 (<5); CREATININE FOR GFR 0.71 MG/DL (0.55-1.30); FREE T4 1.02 NG/DL (0.76-1.46); GLOMERULAR FILTRATION RATE > 60.0 (>51); GLUCOSE, FASTING 187 MG/DL (70-100); HDL CHOLESTEROL 49 MG/DL (>40); LDL CHOLESTEROL 164 MG/DL (<100); NON-HDL-C 191 MG/DL; SODIUM LEVEL 141 MEQ/L (136-145); TOTAL PROTEIN 7.4 GM/DL (6.4-8.2); TRIGLYCERIDES LEVEL 133 MG/DL (<150)
== END ==
LOC: M LAB 08:21
PROVIDERS: ATTEND Physician Assistant Medical
DX: R53.83 Other fatigue (principal)

== ENCOUNTER → 2020-08-07 | Outpatient (CLI) | payer OTHER ==
[2020-08-07 08:23] LABS: ALBUMIN 3.8 GM/DL (3.2-5.2); BILIRUBIN,DIRECT 0.2 MG/DL (0.0-0.2); BILIRUBIN,TOTAL 0.5 MG/DL (0.2-1.0); TOTAL PROTEIN 7.4 GM/DL (6.4-8.2)
== END ==
LOC: M LAB 07:21
PROVIDERS: ATTEND Nurse Practitioner Family
DX: R74.8 Abnormal levels of other serum enzymes (principal)

== ENCOUNTER → 2023-09-09 | Outpatient (REF) | payer OTHER | LOC: M LAB REF 09:59 | PROVIDERS: ATTEND Physician Assistant | DX: R30.0 Dysuria (principal) ==

== ENCOUNTER 2024-09-15 09:22 | Emergency (ER) | payer OTHER ==
[~2024-09-15] VITALS: Ht 170.2 cm; Wt 97.7 kg
[~2024-09-15 09:22] MED LIST changes: -FLOM0.4C39 PO; +TAMS-18 PO
[2024-09-15 10:14] LABS: BASO # 0.0 10^3/uL (0.0-0.2); BASO % 0.6 % (0.0-1.0); EOS # 0.2 10^3/uL (0.0-0.5); EOS % 3.4 % (0.0-3.0); LYMPH # 1.4 10^3/uL (1.5-5.0); LYMPH % 27.1 % (24.0-44.0); MONO # 0.3 10^3/uL (0.0-0.8); MONO % 5.6 % (2.0-8.0); NEUTROPHILS # 3.1 10^3/uL (1.5-8.5); NEUTROPHILS % 62.9 % (36.0-66.0); PLATELET COUNT, AUTOMATED 123 10^3/uL (150-450)
[2024-09-15 10:52] LABS: KETONE, URINE AUTO RFX NEGATIVE (NEGATIVE); LEUKOCYTE ESTERASE UR AUTO RFX NEGATIVE (NEGATIVE); MUCUS, URINE RFX SMALL (NEGATIVE); NITRITE, URINE AUTO RFX NEGATIVE (NEGATIVE); RBC, URINE AUTO RFX TNTC /HPF (0-3); SQUAM EPITHELIAL CELL UR AURFX 1 /HPF (0-6); WBC, URINE AUTO RFX 2 /HPF (0-3)
[2024-09-15 11:43] LABS: CALCIUM LEVEL 8.7 MG/DL (8.5-10.1); CARBON DIOXIDE LEVEL 26 MMOL/L (20-31); CHLORIDE LEVEL 106 MMOL/L (98-107); CREATININE FOR GFR 0.61 MG/DL (0.55-1.30); GLOMERULAR FILTRATION RATE > 90.0 (>51); POTASSIUM SERUM 3.8 MMOL/L (3.5-5.1); SODIUM LEVEL 145 MMOL/L (136-145)
[2024-09-15] MEDS: KETOROLAC 30 MG/ML 1 ML VIAL IV ONE (11:51)
[2024-09-15] MEDS ORDERED: PERC5TAB12 PO (12:27)
[2024-09-15] MEDS ORDERED: ONDA-282 PO (12:27)
[2024-09-15 12:50] VITALS: BP 132/78; TEMP 97.8; O2SAT 97
== END 2024-09-15 12:52 | disposition home or self-care (01) ==
LOC: EDBD 09:22 → M ED 09:22
DX: N20.1 Calculus of ureter (principal); N28.1 Cyst of kidney, acquired; J98.11 Atelectasis; K76.89 Other specified diseases of liver; R16.1 Splenomegaly, not elsewhere classified; K59.00 Constipation, unspecified; E11.9 Type 2 diabetes mellitus without complications; Z87.442 Personal history of urinary calculi; Z88.0 Allergy status to penicillin; Z88.2 Allergy status to sulfonamides; Z91.048 Other nonmedicinal substance allergy status; Z79.52 Long term (current) use of systemic steroids; Z79.4 Long term (current) use of insulin; Z79.83 Long term (current) use of bisphosphonates; Z79.899 Other long term (current) drug therapy
CPT/HCPCS: 74176; 80047; 80048; 81001; 85025; 96374; 96375; 99284; J1885; J3010